=== PATIENT | male | born 1985 | race African-American/Black ===

== ENCOUNTER 2017-05-18 12:37 | Emergency (ER) | payer MEDICAID ==
[~2017-05-18] VITALS: Ht 185.4 cm; Wt 73.0 kg
[2017-05-18] MEDS ORDERED: TRAMADOL 50MG TABLET PO ONE (15:45)
[2017-05-18] MEDS ORDERED: ONDANSETRON HCL 4MG/2ML VIAL IV STA (15:46)
[2017-05-18] MEDS ORDERED: MORPHINE SULFATE 4 MG/ML CPJ (NOT FOR IM USE) IV STA (15:46)
[2017-05-18 17:17] LABS: BASOPHILS % 0.4 % (0.0-2.0); EOSINOPHILS % 0.1 % (0.0-5.0); HEMATOCRIT. 43.4 % (42.0-52.0); HEMOGLOBIN. 14.8 g/dL (14.0-18.0); LYMPHOCYTES % 42.8 % (20.0-50.0); MEAN CORPUSCULAR HEMOGLOBIN 28.7 pg (28.0-32.0); MEAN CORPUSCULAR VOLUME 84.4 fL (80.0-94.0); MEAN PLATELET VOLUME 9.2 fl (7.4-10.4); MONOCYTES % 8.3 % (2.0-8.0); NEUTROPHILS % 48.4 % (40.0-76.0); PLATELET 200 x1000/uL (130-400); RED BLOOD CELL COUNT 5.14 mill/uL (4.7-6.1); RED CELL DISTRIBUTION WIDTH 14.3 % (11.6-14.6)
[2017-05-18 17:19] LABS: INR 1.1; PROTHROMBIN TIME 11.4 sec (9.4-11.6)
[2017-05-18 17:20] LABS: CHLORIDE 102 mEq/L (98-107)
[2017-05-18 17:27] LABS: CARBON DIOXIDE 27 mEq/L (21-32)
[2017-05-18 18:01] VITALS: BP 122/65
== END 2017-05-18 19:14 | disposition home or self-care (01) ==
LOC: ER 12:52
DX: M48.06 Spinal stenosis, lumbar region (principal); M54.5 Low back pain; Z88.6 Allergy status to analgesic agent; Z87.828 Personal history of other (healed) physical injury and trauma
CPT/HCPCS: 36415; 72148; 80053; 85025; 85610; 96374; 96375; 99285; J2270; J2405